=== PATIENT | female | born 1995 | race Caucasian/White ===

== ENCOUNTER 2017-01-13 22:58 | Emergency (ER) | payer SELFPAY ==
--- NOTE | 2017-01-13 23:40 | EDM.PDOC ---
ED HPI GENERAL MEDICAL PROBLEM - General Chief Complaint: Gastrointestinal Problem Stated Complaint: PT VOMITING Time Seen by Provider: 01/13/17 23:30 - History of Present Illness INITIAL COMMENTS - FREE TEXT/NARRATIVE: Patient left without being seen lower abdominal pain Pain Score (Numeric/FACES): 2 - Related Data Allergies Allergy/AdvReac Type Severity Reaction Status Date / Time coconut Allergy Hives Verified 02/16/17 09:42 iodine Allergy Hives Verified 02/16/17 09:42 loratadine [From Claritin] Allergy Rash Verified 02/16/17 09:42 Penicillins Allergy Rash Verified 02/16/17 09:42 sumatriptan Allergy Other Verified 02/16/17 09:42 Home Meds: Home Meds Iud 10/26/15 [History] Past Medical History HEENT History: Reports: None Cardiovascular History: Reports: None Respiratory History: Reports: Asthma Gastrointestinal History: Reports: None Genitourinary History: Reports: None 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 Musculoskeletal History: Reports: None Neurological History: Reports: Other (See Below) 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 Psychiatric History: Reports: None Endocrine/Metabolic History: Reports: None Hematologic History: Reports: None Immunologic History: Reports: None Oncologic (Cancer) History: Reports: None Dermatologic History: Reports: None - Infectious Disease History Infectious Disease History: Reports: Chicken Pox - Past Surgical History Head Surgeries/Procedures: Reports: None Female Surgical History: Reports: D&C Social & Family History - Family History Family Medical History: Noncontributory - Tobacco Use Smoking Status *Q: Current Every Day Smoker Years of Tobacco use: 6 Packs/Tins Daily: 0.2 Second Hand Smoke Exposure: Yes - Recreational Drug Use Recreational Drug Use: Yes Drug Use in Last 12 Months: Yes Recreational Drug Type: Reports: Marijuana/Hashish Recreational Drug Use Frequency: Socially ED ROS GENERAL - Review of Systems Review Of Systems: See Below (History of present illness) ED EXAM, GENERAL - Physical Exam Exam: See Below (History of present illness) Course - Vital Signs Last Recorded V/S: Last Vital Signs Temp 36.2 C 01/13/17 23:30 Pulse 102 H 01/13/17 23:30 Resp 16 01/13/17 23:30 BP 143/84 H 01/13/17 23:30 Pulse Ox 98 01/13/17 23:30 Departure - Departure Time of Disposition: 23:30 Disposition: Left Without Being Seen 07 Condition: Undetermined Clinical Impression: Patient left before evaluation by physician - Discharge Information Referrals: PCP,None [Primary Care Provider] - Forms: ED Department Discharge
[2017-01-14 00:06] VITALS: BP 143/84
== END 2017-01-13 23:52 | disposition left against medical advice (07) ==
LOC: MW.ED 22:58
DX: Z53.21 Procedure and treatment not carried out due to patient leaving prior to being seen by health care provider (principal)

== ENCOUNTER 2017-02-15 09:05 | Emergency (ER) | payer SELFPAY ==
[2017-02-15] MEDS ORDERED: Sodium Chloride 0.9% 10 ML Syringe FLUSH PRN (09:37)
[2017-02-15] MEDS ORDERED: Sodium Chloride 0.9% 2.5 ML Syringe FLUSH PRN (09:37)
[2017-02-15] MEDS ORDERED: Sodium Chloride 0.9% 1,000 ML IV ONE (09:38)
[2017-02-15] MEDS ORDERED: Ketorolac 30 MG/ML SDV IVPUSH ONE (09:38)
[2017-02-15] MEDS ORDERED: Morphine 2 MG/ML Syringe IVPUSH ONE (09:38)
--- NOTE | 2017-02-15 09:43 | EDM.PDOC ---
ED HPI GENERAL MEDICAL PROBLEM - General Chief Complaint: Skin Complaint Stated Complaint: LUMP IN CHEST AREA THATS PAINFUL Time Seen by Provider: 02/15/17 09:25 - History of Present Illness INITIAL COMMENTS - FREE TEXT/NARRATIVE: HISTORY AND PHYSICAL: History of present illness: The patient is a healthy 21-year-old female with a history of mild asthma and was an IUD in place and is not and presents with complaints of 5 days of a lump near the right armpit that now has extended to the right chest wall. The patient says she has had a fever over this same timeframe ranging from 99- 101.1. His been using [id number] medications for that fever. She has no sore throat cough runny nose shortness of breath abdominal complaints. She says that she noticed a small bump in the armpit on the right side 5 days ago and she did not manipulate it but it was very painful. She noticed that it was spreading towards her chest wall area and thought she should get seen because of the size of the redness and swelling. Patient has no breast complaints and no breast masses. Patient has no neurosensory changes or weakness in the right upper extremity. She says the area is very tender and she has put warm compresses on it which has made it worse Review of systems: As per history of present illness and below otherwise all systems reviewed and negative. Past medical history: As per history of present illness and as reviewed below otherwise noncontributory. Surgical history: As per history of present illness and as reviewed below otherwise noncontributory. Social history: No reported history of drug or alcohol abuse. Family history: As per history of present illness and as reviewed below otherwise noncontributory. Physical exam: Gen.: Well-developed overweight female who is nontoxic and vital signs of been reviewed by me. HEENT: Atraumatic, normocephalic, pupils reactive, negative for conjunctival pallor or scleral icterus, mucous membranes moist, throat clear, neck supple, nontender, trachea midline. No cervical adenopathy or supraclavicular adenopathy Lungs: Clear to auscultation, breath sounds equal bilaterally, chest wall with tenderness fluctuance and erythema noted originating from the anterior axillary line on the right and extending medially for a total measurement of 12-13 cm x 8 -9 cm. There is fluctuance or at the anterior axillary line area but it does extend into the chest wall. There is tenderness with palpation of this which is exquisite and the margins are well-defined. The patient is able to range of motion the right upper extremity but there is some discomfort with engagement of the musculature. There is no crepitus or bony deformities appreciated. There is no sensory muscle use or work of breathing. There is no axillary lymphadenopathy appreciated and no supraclavicular adenopathy appreciated. A right breast is soft without any tenderness masses or erythema Heart: S1S2, regular rhythm tachycardic rate on my evaluation, negative for clicks, rubs, or JVD. Abdomen: Soft, nondistended, nontender. NABS Skin: No evidence of any rashes or lesions seen with the exception of the chest wall area as described above. Turgor is normal Genitourinary: Deferred. Rectal: Deferred. Extremities: Atraumatic, negative for cords or calf pain. Neurovascular unremarkable. Neuro: Awake, alert, oriented. Cranial nerves II through XII unremarkable. Cerebellum unremarkable. Motor and sensory unremarkable throughout. Exam nonfocal. Diagnostics: Chest x-ray CBC CMP lactic acid blood cultures ultrasound of the soft tissue of the chest wall/axillary area Therapeutics: IV fluids Toradol morphine Vancomycin Area of erythema and swelling was marked with a surgical pen Case was discussed with Dr. Moscoso @1118am; she has reviewed labs and ultrasound with me and is aware of the case and request that I do a local I&D, without super aggressive manipulation, and place the patient on antibiotics and she will follow the patient and her clinic on Tuesday. I discussed the procedure with the patient and she is agreeable. I also told her that I will have her return tomorrow to the ER for reevaluation. I told her that she will need to contact the clinic and get that scheduled appointment for Tuesday. Procedure note: After procedure was explanted the patient the area was prepped and draped in sterile fashion and 1% lidocaine with epinephrine was infused in a localized fashion at the area of most fluctuance. Using 11 blade scalpel incision was made and Copious pus was immediately expressed appeared to be under pressure after the incision was made. The area was milked and or pus was extracted and the cavity was gently probed and an iodoform gauze was placed. The dressing was applied by nursing There were no complications and the patient tolerated the procedure well. Impression: Abscess and cellulitis at right axilla/chest wall Definitive disposition and diagnosis as appropriate pending reevaluation and review of above. Right breast Pain Score (Numeric/FACES): 8 - Related Data Allergies Allergy/AdvReac Type Severity Reaction Status Date / Time coconut Allergy Hives Verified 02/15/17 09:17 iodine Allergy Hives Verified 02/15/17 09:17 loratadine [From Claritin] Allergy Rash Verified 02/15/17 09:17 Penicillins Allergy Rash Verified 02/15/17 09:17 sumatriptan Allergy Other Verified 02/15/17 09:17 Home Meds: Home Meds Iud 10/26/15 [History] Past Medical History HEENT History: Reports: None Cardiovascular History: Reports: None Respiratory History: Reports: Asthma Gastrointestinal History: Reports: None Genitourinary History: Reports: None 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 Musculoskeletal History: Reports: None Neurological History: Reports: Other (See Below) 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 Psychiatric History: Reports: None Endocrine/Metabolic History: Reports: None Hematologic History: Reports: None Immunologic History: Reports: None Oncologic (Cancer) History: Reports: None Dermatologic History: Reports: None - Infectious Disease History Infectious Disease History: Reports: Chicken Pox - Past Surgical History Head Surgeries/Procedures: Reports: None Female Surgical History: Reports: D&C Social & Family History - Family History Family Medical History: Noncontributory - Tobacco Use Smoking Status *Q: Current Every Day Smoker Years of Tobacco use: 4 Packs/Tins Daily: 0.3 Second Hand Smoke Exposure: Yes - Caffeine Use Caffeine Use: Reports: Coffee - Recreational Drug Use Recreational Drug Use: No Drug Use in Last 12 Months: Yes Recreational Drug Type: Reports: Marijuana/Hashish Recreational Drug Use Frequency: Socially ED ROS GENERAL - Review of Systems Review Of Systems: ROS reveals no pertinent complaints other than HPI. ED EXAM, SKIN/RASH Exam: See Below (See dictation) Course - Vital Signs Last Recorded V/S: Last Vital Signs Temp 36.6 C 02/15/17 09:18 Pulse 92 02/15/17 10:41 Resp 16 02/15/17 10:41 BP 121/74 02/15/17 10:41 Pulse Ox 100 02/15/17 10:41 - Orders/Labs/Meds Orders: Active Orders 24 hr Category Date Time Status CULTURE BLOOD [BC] Stat Lab 02/15/17 09:45 Received CULTURE BLOOD [BC] Stat Lab 02/15/17 09:56 Received Sodium Chloride 0.9% [Saline Flush] Med 02/15/17 09:37 Active 10 ml FLUSH ASDIRECTED PRN Sodium Chloride 0.9% [Saline Flush] Med 02/15/17 09:37 Active 2.5 ml FLUSH ASDIRECTED PRN Vancomycin [Vancocin] 1 gm Med 02/15/17 11:22 Active Sodium Chloride 0.9% [Normal Saline] 250 ml IV ONETIME Blood Culture x2 Reflex Set [OM.PC] Stat Oth 02/15/17 09:38 Ordered Saline Lock Insert [OM.PC] Stat Oth 02/15/17 09:36 Ordered Medication Orders Vancomycin HCl 1 gm/ Sodium (Chloride) 250 mls @ 250 mls/hr IV ONETIME ONE Stop: 02/15/17 12:21 Last Admin: 02/15/17 11:58 Dose: 250 mls/hr Sodium Chloride (Saline Flush) 10 ml FLUSH ASDIRECTED PRN PRN Reason: Keep Vein Open Last Admin: 02/15/17 09:51 Dose: 10 ml Sodium Chloride (Saline Flush) 2.5 ml FLUSH ASDIRECTED PRN PRN Reason: Keep Vein Open Labs: Laboratory Tests 02/15/17 02/15/17 02/15/17 Range/Units 09:45 09:45 09:45 WBC 14.79 H (4.0-11.0) K/uL RBC 4.32 (4.30-5.90) M/uL Hgb 13.9 (12.0-16.0) g/dL Hct 42.4 (36.0-46.0) % MCV 98.1 H (80.0-98.0) fL MCH 32.2 H (27.0-32.0) pg MCHC 32.8 (31.0-37.0) g/dL RDW Std Deviation 46.2 (28.0-62.0) fl RDW Coeff of Jacqueline 13 (11.0-15.0) % Plt Count 312 (150-400) K/uL MPV 9.90 (7.40-12.00) fL Neut % (Auto) 77.2 (48.0-80.0) % Lymph % (Auto) 12.9 L (16.0-40.0) % [place] % (Auto) 8.9 (0.0-15.0) % Eos % (Auto) 0.7 (0.0-7.0) % Baso % (Auto) 0.3 (0.0-1.5) % Neut # (Auto) 11.4 H (1.4-5.7) K/uL Lymph # (Auto) 1.9 (0.6-2.4) K/uL [place] # (Auto) 1.3 H (0.0-0.8) K/uL Eos # (Auto) 0.1 (0.0-0.7) K/uL Baso # (Auto) 0.0 (0.0-0.1) K/uL Nucleated RBC % 0.0 /100WBC Nucleated RBCs # 0 K/uL Lactate 1.8 (0.20-2.00) mmol/L Sodium 139 (136-146) mmol/L Potassium 4.1 (3.5-5.1) mmol/L Chloride 105 (98-110) mmol/L Carbon Dioxide 23 (21-31) mmol/L BUN 11 (6.0-23.0) mg/dL Creatinine 0.8 (0.6-1.5) mg/dL Est Cr Clr Drug Dosing 106.36 mL/min Estimated GFR (MDRD) > 60.0 ml/min Glucose 132 H (60-110) mg/dL Calcium 9.6 (8.8-10.8) mg/dL Total Bilirubin 0.3 (0.1-1.5) mg/dL AST 15 (5-40) IU/L ALT 28 (8-54) IU/L Alkaline Phosphatase 81 (40-150) Total Protein 7.9 (6.0-8.0) g/dL Albumin 4.2 (3.5-5.0) g/dL Globulin 3.7 H (2.0-3.5) g/dL Albumin/Globulin Ratio 1.1 L (1.3-2.8) Meds: Medications Generic Name Dose Route Start Last Admin Trade Name Freq PRN Reason Stop Dose Admin Vancomycin HCl 1 gm/ Sodium 250 mls @ 250 mls/hr 09/05/17 11:22 02/15/17 11: 58 Chloride IV 02/15/17 12:21 250 mls/hr ONETIME ONE Administration Sodium Chloride 10 ml 02/15/17 09:37 02/15/17 09:51 Saline Flush FLUSH 10 ml ASDIRECTED PRN Administration Keep Vein Open Sodium Chloride 2.5 ml 02/15/17 09:37 Saline Flush FLUSH ASDIRECTED PRN Keep Vein Open Discontinued Medications Generic Name Dose Route Start Last Admin Trade Name Beckie PRN Reason Stop Dose Admin Sodium Chloride 1,000 mls @ 999 mls/hr 02/15/17 09:38 02/15/17 10:38 Normal Saline IV 02/15/17 10:38 999 mls/hr STAT ONE Administration Ketorolac Tromethamine 30 mg 02/15/17 09:38 02/15/17 09:51 Toradol IVPUSH 02/15/17 09:39 30 mg ONETIME ONE Administration Lidocaine/Epinephrine 20 ml 02/15/17 11:22 02/15/17 11:58 Xylocaine 1% With Epinephrine 1:100,000 INJECT 02/15/17 11:23 20 ml ONETIME ONE Administration Morphine Sulfate 2 mg 02/15/17 09:38 02/15/17 09:52 Morphine IVPUSH 02/15/17 09:39 2 mg ONETIME ONE Administration Departure - Departure Time of Disposition: 12:15 Disposition: Home, Self-Care 01 Condition: Good Clinical Impression: Abscess Cellulitis Qualifiers: Site of cellulitis: other site Qualified Code(s): L03.818 - Cellulitis of other sites - Discharge Information Referrals: PCP,None [Primary Care Provider] - Forms: ED Department Discharge Additional Instructions: The following information is given to patients seen in the emergency department who are being discharged to home. This information is to outline your options for follow-up care. We provide all patients seen in our emergency department with a follow-up referral. The need for follow-up, as well as the timing and circumstances, are variable depending upon the specifics of your emergency department visit. If you don't have a primary care physician on staff, we will provide you with a referral. We always advise you to contact your personal physician following an emergency department visit to inform them of the circumstance of the visit and for follow-up with them and/or the need for any referrals to a consulting specialist. The emergency department will also refer you to a specialist when appropriate. This referral assures that you have the opportunity for followup care with a specialist. All of these measure are taken in an effort to provide you with optimal care, which includes your followup. Under all circumstances we always encourage you to contact your private physician who remains a resource for coordinating your care. When calling for followup care, please make the office aware that this follow-up is from your recent emergency room visit. If for any reason you are refused follow-up, please contact the [facility] emergency department at and ask to speak to the emergency department charge nurse. [facility] [address] [place] [id number] Please make an appointment at the clinic with Dr. Moscoso for Tuesday, she has urinated and she expects you to make an appointment to be followed up. Please tail a polymer specialist that the physician approved this visit. Please return to ER tomorrow for pack removal and reevaluation. Please take all antibiotics as directed starting them today. Use pain meds as needed or [id number] Tylenol/ibuprofen. Please change the dressing if it becomes wet and expect drainage from the area. Rest and hydrate. - My Orders Last 24 Hours: My Active Orders 02/15/17 09:36 Saline Lock Insert [OM.PC] Stat 02/15/17 09:37 Sodium Chloride 0.9% [Saline Flush] 10 ml FLUSH ASDIRECTED PRN Sodium Chloride 0.9% [Saline Flush] 2.5 ml FLUSH ASDIRECTED PRN 02/15/17 09:38 Blood Culture x2 Reflex Set [OM.PC] Stat 02/15/17 09:45 CULTURE BLOOD [BC] Stat 02/15/17 09:56 CULTURE BLOOD [BC] Stat 02/15/17 11:22 Vancomycin [Vancocin] 1 gm Sodium Chloride 0.9% [Normal Saline] 250 ml IV ONETIME - Assessment/Plan Last 24 Hours: My Active Orders 02/15/17 09:36 Saline Lock Insert [OM.PC] Stat 02/15/17 09:37 Sodium Chloride 0.9% [Saline Flush] 10 ml FLUSH ASDIRECTED PRN Sodium Chloride 0.9% [Saline Flush] 2.5 ml FLUSH ASDIRECTED PRN 02/15/17 09:38 Blood Culture x2 Reflex Set [OM.PC] Stat 02/15/17 09:45 CULTURE BLOOD [BC] Stat 02/15/17 09:56 CULTURE BLOOD [BC] Stat 02/15/17 11:22 Vancomycin [Vancocin] 1 gm Sodium Chloride 0.9% [Normal Saline] 250 ml IV ONETIME
--- NOTE | 2017-02-15 10:23 | US ---
EXAMINATION: Right axillary ultrasound HISTORY: Evaluate abscess COMPARISON: None TECHNIQUE: Grayscale and color Doppler images obtained of the region of concern. FINDINGS: There is a heterogeneous collection noted within the right axillary/upper chest wall region measuring at least 3 x 3.2 x 1.8 cm. There is prominent overlying skin thickening and edema within t he soft tissues. No significant internal color Doppler flow with mildly increased surrounding color D oppler flow. IMPRESSION: 1. Prominent subcutaneous fluid collection noted within the region of concern most likely a subcutane ous abscess with adjacent cellulitis.
[2017-02-15 10:26] LABS: CHLORIDE,CL 105 mmol/L (98-110); SODIUM,NA 139 mmol/L (136-146)
--- NOTE | 2017-02-15 10:55 | CR ---
EXAMINATION: PA chest radiograph. HISTORY: Shortness of breath. FINDINGS: The trachea is midline. The cardiomediastinal silhouette is within normal limits. No pulmonary infilt rates, effusions or pneumothorax. Osseous structures appear unremarkable. IMPRESSION: No acute cardiopulmonary process.
[2017-02-15] MEDS ORDERED: Lidocaine 1% with EPINEPHrine 1:100,000 20 ML MDV INJECT ONE (11:22)
[2017-02-15] MEDS ORDERED: diphenhydrAMINE 50 MG/ML SDV IVPUSH ONE (13:02)
[2017-02-15 13:54] VITALS: BP 143/73
== END 2017-02-15 13:46 | disposition home or self-care (01) ==
LOC: MW.ED 09:05
DX: L02.411 Cutaneous abscess of right axilla (principal); L03.111 Cellulitis of right axilla; J45.909 Unspecified asthma, uncomplicated; F17.210 Nicotine dependence, cigarettes, uncomplicated; Z88.0 Allergy status to penicillin; Z88.8 Allergy status to other drugs, medicaments and biological substances; Z91.018 Allergy to other foods
CPT/HCPCS: 10061; 36415; 71010; 76604; 80053; 83605; 85025; 87040; 96361; 96365; 96375; 99284; J1200; J1885; J2270; J3370; J7040; J7050; 99283

== ENCOUNTER 2017-02-16 09:13 | Emergency (ER) | payer SELFPAY ==
[2017-02-16] MEDS ORDERED: Lidocaine 1% 20 ML MDV INJECT ONE (09:14)
--- NOTE | 2017-02-16 09:18 | EDM.PDOC ---
ED HPI GENERAL MEDICAL PROBLEM - General Chief Complaint: Wound Recheck Stated Complaint: F/U LUMP ON CHEST Time Seen by Provider: 02/16/17 09:25 - History of Present Illness INITIAL COMMENTS - FREE TEXT/NARRATIVE: HISTORY AND PHYSICAL: History of present illness: The patient is a 21-year-old female who I saw yesterday for an abscess and cellulitis that originated from her right anterior axillary line and then was spreading to her anterior chest wall. She had a workup yesterday consisting of labs and ultrasound and I performed an incision and drainage on the wound yesterday. Patient was given antibiotics here and placed on antibiotics for home. She returns today for a wound check and repacking as needed. Patient says overall she feels like it is improving but it is still sensitive in the area. She has no new symptoms of fever chest pain shortness of breath or other rashes or lesions. Review of systems: As per history of present illness and below otherwise all systems reviewed and negative. Past medical history: As per history of present illness and as reviewed below otherwise noncontributory. Surgical history: As per history of present illness and as reviewed below otherwise noncontributory. Social history: No reported history of drug or alcohol abuse. Family history: As per history of present illness and as reviewed below otherwise noncontributory. Physical exam: Gen.: Well-developed well-nourished female who is nontoxic and ambulatory in the ED. Vital signs have been reviewed by me. Chest wall area: The area of erythema and induration that was marked yesterday is significantly improved. There is still some tenderness in the region but there is no crepitus and there is still induration but no fluctuance. The pack is in place. Diagnostics: None Therapeutics: Lidocaine without epinephrine for packing change Procedure note: After the area was cleansed with normal saline 1% lidocaine without epinephrine was infused in the incision site and the pack was removed without complication. More pus was expressed from the wound but only in a moderate amount. The wound was repacked with iodoform gauze 1/4 inch and the patient tolerated the procedure well and there were no complications. A dressing was reapplied. I discussed with the patient that she could remove the pack at home tomorrow as she has an appointment with Dr. Moscoso on Tuesday. Patient states she does not feel comfortable doing that so I have offered her the option of coming back tomorrow for pack change if she feels that there is significant drainage and the pack needs to be changed out or she could leave this pack in until Tuesday morning. She says that she will see how things go return if necessary. She is currently taking her antibiotics and is compliant. Impression: Wound recheck for chest wall abscess abscess repacking, Definitive disposition and diagnosis as appropriate pending reevaluation and review of above. right chest area Pain Score (Numeric/FACES): 6 - Related Data Allergies Allergy/AdvReac Type Severity Reaction Status Date / Time coconut Allergy Hives Verified 02/15/17 09:17 iodine Allergy Hives Verified 02/15/17 09:17 loratadine [From Claritin] Allergy Rash Verified 02/15/17 09:17 Penicillins Allergy Rash Verified 02/15/17 09:17 sumatriptan Allergy Other Verified 02/15/17 09:17 Home Meds: Home Meds Iud 10/26/15 [History] Past Medical History HEENT History: Reports: None Cardiovascular History: Reports: None Respiratory History: Reports: Asthma Gastrointestinal History: Reports: None Genitourinary History: Reports: None 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 Musculoskeletal History: Reports: None Neurological History: Reports: Other (See Below) 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 Psychiatric History: Reports: None Endocrine/Metabolic History: Reports: None Hematologic History: Reports: None Immunologic History: Reports: None Oncologic (Cancer) History: Reports: None Dermatologic History: Reports: None - Infectious Disease History Infectious Disease History: Reports: Chicken Pox - Past Surgical History Head Surgeries/Procedures: Reports: None Female Surgical History: Reports: D&C Social & Family History - Family History Family Medical History: Noncontributory - Tobacco Use Smoking Status *Q: Current Every Day Smoker Years of Tobacco use: 4 Packs/Tins Daily: 0.3 Second Hand Smoke Exposure: Yes - Caffeine Use Caffeine Use: Reports: Coffee - Recreational Drug Use Recreational Drug Use: No Drug Use in Last 12 Months: Yes Recreational Drug Type: Reports: Marijuana/Hashish Recreational Drug Use Frequency: Socially ED ROS GENERAL - Review of Systems Review Of Systems: ROS reveals no pertinent complaints other than HPI. ED EXAM, GENERAL - Physical Exam Exam: See Below (See dictation) Course - Orders/Labs/Meds Meds: Medications Discontinued Medications Generic Name Dose Route Start Last Admin Trade Name Beckie PRN Reason Stop Dose Admin Lidocaine HCl 20 ml 02/16/17 09:14 Xylocaine 1% INJECT 02/16/17 09:15 ONETIME ONE Departure - Departure Time of Disposition: 09:39 Disposition: Home, Self-Care 01 Condition: Good Clinical Impression: Encounter for wound re-check - Discharge Information Forms: ED Department Discharge Additional Instructions: The following information is given to patients seen in the emergency department who are being discharged to home. This information is to outline your options for follow-up care. We provide all patients seen in our emergency department with a follow-up referral. The need for follow-up, as well as the timing and circumstances, are variable depending upon the specifics of your emergency department visit. If you don't have a primary care physician on staff, we will provide you with a referral. We always advise you to contact your personal physician following an emergency department visit to inform them of the circumstance of the visit and for follow-up with them and/or the need for any referrals to a consulting specialist. The emergency department will also refer you to a specialist when appropriate. This referral assures that you have the opportunity for followup care with a specialist. All of these measure are taken in an effort to provide you with optimal care, which includes your followup. Under all circumstances we always encourage you to contact your private physician who remains a resource for coordinating your care. When calling for followup care, please make the office aware that this follow-up is from your recent emergency room visit. If for any reason you are refused follow-up, please contact the [facility] emergency department at and ask to speak to the emergency department charge nurse. [facility] [address] [place] [id number] Please continue to do dressing changes if there is significant drainage from the wound. Please continue your antibiotics until they're finished. Keep your appointment on Tuesday with Dr. Moscoso; he may return here tomorrow to the emergency department for pack change tomorrow if you choose or you can leave the pack in until seen by the surgeon on Tuesday. Please hi how things are going to make that decision but return to ER as needed and as we discussed and as you choose.
[2017-02-16 09:48] VITALS: BP 120/75
== END 2017-02-16 09:51 | disposition home or self-care (01) ==
LOC: MW.ED 09:13
DX: Z48.01 Encounter for change or removal of surgical wound dressing (principal); L02.213 Cutaneous abscess of chest wall; F17.210 Nicotine dependence, cigarettes, uncomplicated; J45.909 Unspecified asthma, uncomplicated; Z88.0 Allergy status to penicillin; Z88.8 Allergy status to other drugs, medicaments and biological substances; Z91.018 Allergy to other foods; Z98.890 Other specified postprocedural states
CPT/HCPCS: 99282

== ENCOUNTER 2018-12-08 01:35 | Emergency (ER) | payer SELFPAY ==
[2018-12-08 01:47] VITALS: BP 128/86
--- NOTE | 2018-12-08 01:58 | EDM.PDOC ---
ED HPI GENERAL MEDICAL PROBLEM - General Chief Complaint: Back Pain or Injury Stated Complaint: BACK PAIN, SPINAL CONDITION, CHEST PAIN Time Seen by Provider: 12/08/18 01:53 - History of Present Illness INITIAL COMMENTS - FREE TEXT/NARRATIVE: HISTORY AND PHYSICAL: History of present illness: Patient 23-year-old white female with history chronic neck and back pain presents a concern of back pain that occurred when she bent over to peanut picker a friend's child. She has been seeing a chiropractor regularly for this. There's been no incontinence or retention bowel or bladder Review of systems: As per history of present illness and below otherwise all systems reviewed and negative. Past medical history: As per history of present illness and as reviewed below otherwise noncontributory. Surgical history: As per history of present illness and as reviewed below otherwise noncontributory. Social history: No reported history of drug or alcohol abuse. Family history: As per history of present illness and as reviewed below otherwise noncontributory. Physical exam: HEENT: Atraumatic, normocephalic, pupils reactive, negative for conjunctival pallor or scleral icterus, mucous membranes moist, throat clear, neck supple, nontender, trachea midline. Lungs: Clear to auscultation, breath sounds equal bilaterally, chest nontender. Heart: S1S2, regular, negative for clicks, rubs, or JVD. Abdomen: Soft, nondistended, nontender. Negative for masses or hepatosplenomegaly. Negative for costovertebral tenderness. Pelvis: Stable nontender. Genitourinary: Deferred. Rectal: Deferred. Extremities: Atraumatic, negative for cords or calf pain. Neurovascular unremarkable. Neuro: Awake, alert, oriented. Cranial nerves II through XII unremarkable. Cerebellum unremarkable. Motor and sensory unremarkable throughout. Exam nonfocal. Back: Patient has tenderness in paravertebral region at the level lumbar spinal vertebral body or point tenderness patient able stand on her toes back on her heels motor and sensory are normal Diagnostics: None Therapeutics: None Impression: #1 chronic back pain with acute exacerbation Definitive disposition and diagnosis as appropriate pending reevaluation and review of above. back Pain Score (Numeric/FACES): 7 - Related Data Allergies Allergy/AdvReac Type Severity Reaction Status Date / Time coconut Allergy Hives Verified 12/08/18 01:47 iodine Allergy Hives Verified 12/08/18 01:47 loratadine [From Claritin] Allergy Rash Verified 12/08/18 01:47 Penicillins Allergy Rash Verified 12/08/18 01:47 sumatriptan Allergy Other Verified 12/08/18 01:47 Home Meds: Home Meds . 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; spinal tap for headaches Psychiatric History: Reports: Anxiety, Depression Endocrine/Metabolic History: Reports: None Hematologic History: Reports: None Immunologic History: Reports: None Oncologic (Cancer) History: Reports: None Dermatologic History: Reports: None - Infectious Disease History Infectious Disease History: Reports: Chicken Pox - Past Surgical History Head Surgeries/Procedures: Reports: None Female Surgical History: Reports: D&C Neurological Surgical History: Reports: None Social & Family History - Family History Family Medical History: Noncontributory - Tobacco Use Smoking Status *Q: Current Every Day Smoker Years of Tobacco use: 7 Packs/Tins Daily: 0.5 - Caffeine Use Caffeine Use: Reports: Coffee - Recreational Drug Use Recreational Drug Use: No ED ROS GENERAL - Review of Systems Review Of Systems: ROS reveals no pertinent complaints other than HPI. ED EXAM, GENERAL - Physical Exam Exam: See Below (Dictation) Course - Vital Signs Last Recorded V/S: Last Vital Signs Temp 36.3 C 12/08/18 01:42 Pulse 113 H 12/08/18 01:42 Resp 18 12/08/18 01:42 BP 128/86 12/08/18 01:42 Pulse Ox 97 12/08/18 01:42 Departure - Departure Time of Disposition: 01:57 Disposition: Home, Self-Care 01 Condition: Good Clinical Impression: Chronic back pain - Discharge Information Referrals: PCP,None [Primary Care Provider] - Additional Instructions: The following information is given to patients seen in the emergency department who are being discharged to home. This information is to outline your options for follow-up care. We provide all patients seen in our emergency department with a follow-up referral. The need for follow-up, as well as the timing and circumstances, are variable depending upon the specifics of your emergency department visit. If you don't have a primary care physician on staff, we will provide you with a referral. We always advise you to contact your personal physician following an emergency department visit to inform them of the circumstance of the visit and for follow-up with them and/or the need for any referrals to a consulting specialist. The emergency department will also refer you to a specialist when appropriate. This referral assures that you have the opportunity for followup care with a specialist. All of these measure are taken in an effort to provide you with optimal care, which includes your followup. Under all circumstances we always encourage you to contact your private physician who remains a resource for coordinating your care. When calling for followup care, please make the office aware that this follow-up is from your recent emergency room visit. If for any reason you are refused follow-up, please contact the [facility] emergency department at and asked to speak to the emergency department charge nurse. [facility] [address] [place] [id number] Ultram Medrol as prescribed follow-up primary care above return as needed as discussed
== END 2018-12-08 02:20 | disposition home or self-care (01) ==
LOC: MW.ED 01:35
DX: M54.5 Low back pain (principal); G89.29 Other chronic pain; F17.210 Nicotine dependence, cigarettes, uncomplicated; Z91.018 Allergy to other foods; Z91.09 Other allergy status, other than to drugs and biological substances; Z88.0 Allergy status to penicillin; Z88.8 Allergy status to other drugs, medicaments and biological substances
CPT/HCPCS: 99283

== ENCOUNTER 2020-05-13 00:46 | Emergency (ER) | payer SELFPAY ==
[2020-05-13 01:21] VITALS: BP 155/94; PULSE 129
--- NOTE | 2020-05-13 01:52 | EDM.PDOC ---
ED HPI GENERAL MEDICAL PROBLEM - General Chief Complaint: Behavioral/Psych Stated Complaint: SUICIDAL Time Seen by Provider: 05/13/20 00:56 - History of Present Illness INITIAL COMMENTS - FREE TEXT/NARRATIVE: 25-year-old female presenting with suicidal ideation. The patient reports that she has struggled with depression and suicidal ideation for years. She did have a prior attempt by overdose and she thought about cutting her wrists in the past but never did. She has had overwhelming suicidal ideation that is been gradually worsening over the last several days. She states that the only reason she has not shot herself in the head is because she does not want to ruin her sister's 18th birthday which just passed. The patient confided in her aunt who encouraged her to come to the ER tonight. She does have active suicidal ideation she denies a history of psychosis she was previously on antidepressants and antipsychotics but has not been on any medicine for some time and is seeing a counselor as. She denies ever having presented to an ER or hospital for these types of issues in the past. She denies physical complaint. - Related Data Allergies Allergy/AdvReac Type Severity Reaction Status Date / Time coconut Allergy Hives Verified 05/13/20 01:21 iodine Allergy Hives Verified 05/13/20 01:21 loratadine [From Claritin] Allergy Rash Verified 05/13/20 01:21 Penicillins Allergy Rash Verified 05/13/20 01:21 sumatriptan Allergy Other Verified 05/13/20 01:21 Home Meds: Home Meds . 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; spinal tap for headaches Psychiatric History: Reports: Anxiety, Depression Endocrine/Metabolic History: Reports: None Hematologic History: Reports: None Immunologic History: Reports: None Oncologic (Cancer) History: Reports: None Dermatologic History: Reports: None - Infectious Disease History Infectious Disease History: Reports: Chicken Pox - Past Surgical History Head Surgeries/Procedures: Reports: None Female Surgical History: Reports: D&C Neurological Surgical History: Reports: None Social & Family History - Family History Family Medical History: No Pertinent Family History - Tobacco Use Tobacco Use Status *Q: Current Every Day Tobacco User Years of Tobacco use: 10 Packs/Tins Daily: 0.5 - Caffeine Use Caffeine Use: Reports: Coffee, Energy Drinks - Recreational Drug Use Recreational Drug Use: No ED ROS GENERAL - Review of Systems Review Of Systems: See Below Free Text/Narrative/Comment: General: No fever. Skin: No rash. Eyes: No vision problems. ENT: No sore throat. Neck: No neck stiffness. Respiratory: No shortness of breath. Cardiac: No chest pain. Gastrointestinal: No nausea, vomiting or abdominal pain. Urinary: No dysuria. Musculoskeletal: No myalgias/arthralgias. Neurologic: No headache. ED EXAM, GENERAL - Physical Exam Exam: See Below Free Text/Narrative:: General Appearance: No acute distress, appears comfortable Skin: No rash HEENT: Normocephalic/atraumatic, sclera anicteric, mucous membranes moist Neck: Normal range of motion Chest and Lungs: Bilateral breath sounds, clear to auscultation Cardiovascular: Regular rate and rhythm, no murmur Back: Normal Musculoskeletal: No edema or tenderness Neurologic: Awake, alert, no obvious deficits, moving all extremities Psychiatric: Depressed mood, tearful, appropriate affect, active SI, no HI, no signs of internal stimuli #1 Interpretation EKG Date: 05/13/20 Time: 02:00 EKG Interpretation Comments: Normal sinus rhythm rate of 99 slight rightward axis but intervals normal with QTC 425 no acute ischemia otherwise normal EKG Course - Vital Signs Last Recorded V/S: Last Vital Signs Temp 98.8 F 05/13/20 01:18 Pulse 129 H 05/13/20 01:18 Resp 22 H 05/13/20 01:18 BP 155/94 H 05/13/20 01:18 Pulse Ox 96 05/13/20 01:18 - Orders/Labs/Meds Orders: Active Orders 24 hr Category Date Time Status EKG Documentation Completion [RC] STAT Care 05/13/20 01:34 Active CORONAVIRUS COVID-19 PCR PHL Stat Lab 05/13/20 02:08 Received Labs: Laboratory Tests 1205/13/20 05/13/20 Range/Units 01:47 01:47 01:49 WBC 9.07 (4.0-11.0) K/uL RBC 4.11 L (4.30-5.90) M/uL Hgb 13.4 (12.0-16.0) g/dL Hct 40.3 (36.0-46.0) % MCV 98.1 H (80.0-98.0) fL MCH 32.6 H (27.0-32.0) pg MCHC 33.3 (31.0-37.0) g/dL RDW Std Deviation 43.2 (28.0-62.0) fl RDW Coeff of Jacqueline 12 (11.0-15.0) % Plt Count 280 (150-400) K/uL MPV 10.00 (7.40-12.00) fL Neut % (Auto) 60.3 (48.0-80.0) % Lymph % (Auto) 30.9 (16.0-40.0) % [place] % (Auto) 7.6 (0.0-15.0) % Eos % (Auto) 0.6 (0.0-7.0) % Baso % (Auto) 0.6 (0.0-1.5) % Neut # (Auto) 5.5 (1.4-5.7) K/uL Lymph # (Auto) 2.8 H (0.6-2.4) K/uL [place] # (Auto) 0.7 (0.0-0.8) K/uL Eos # (Auto) 0.1 (0.0-0.7) K/uL Baso # (Auto) 0.1 (0.0-0.1) K/uL Sodium 144 (136-145) mmol/L Potassium 3.7 (3.5-5.1) mmol/L Chloride 105 (98-107) mmol/L Carbon Dioxide 25.0 (21.0-32.0) mmol/L BUN 8 (7.0-18.0) mg/dL Creatinine 0.9 (0.6-1.0) mg/dL Est Cr Clr Drug Dosing 91.31 mL/min Estimated GFR (MDRD) > 60.0 ml/min Glucose 114 H (74-106) mg/dL Calcium 9.1 (8.5-10.1) mg/dL Total Bilirubin 0.1 L (0.2-1.0) mg/dL AST 38 H (15-37) IU/L ALT 88 H (14-63) IU/L Alkaline Phosphatase 64 (46-116) U/L Total Protein 7.8 (6.4-8.2) g/dL Albumin 4.2 (3.4-5.0) g/dL Globulin 3.6 (2.6-4.0) g/dL Albumin/Globulin Ratio 1.2 (0.9-1.6) Urine HCG, Qual (NEGATIVE) Salicylates 1.6 (0-20) mg/dL Urine Opiates Screen NEGATIVE (NEGATIVE) Ur Oxycodone Screen NEGATIVE (NEGATIVE) Urine Methadone Screen NEGATIVE (NEGATIVE) Acetaminophen <2.0 ug/mL Ur Barbiturates Screen NEGATIVE (NEGATIVE) Ur Phencyclidine Scrn NEGATIVE (NEGATIVE) Ur Amphetamine Screen NEGATIVE (NEGATIVE) U Methamphetamines Scrn NEGATIVE (NEGATIVE) U Benzodiazepines Scrn NEGATIVE (NEGATIVE) U Cocaine Metab Screen NEGATIVE (NEGATIVE) U Marijuana (THC) Screen NEGATIVE (NEGATIVE) Ethyl Alcohol 197 mg/dL SARS CoV-2 RNA Rapid MIKEY (NEGATIVE) 05/13/20 05/13/20 Range/Units 01:49 01:50 WBC (4.0-11.0) K/uL RBC (4.30-5.90) M/uL Hgb (12.0-16.0) g/dL Hct (36.0-46.0) % MCV (80.0-98.0) fL MCH (27.0-32.0) pg MCHC (31.0-37.0) g/dL RDW Std Deviation (28.0-62.0) fl RDW Coeff of Jacqueline (11.0-15.0) % Plt Count (150-400) K/uL MPV (7.40-12.00) fL Neut % (Auto) (48.0-80.0) % Lymph % (Auto) (16.0-40.0) % [place] % (Auto) (0.0-15.0) % Eos % (Auto) (0.0-7.0) % Baso % (Auto) (0.0-1.5) % Neut # (Auto) (1.4-5.7) K/uL Lymph # (Auto) (0.6-2.4) K/uL [place] # (Auto) (0.0-0.8) K/uL Eos # (Auto) (0.0-0.7) K/uL Baso # (Auto) (0.0-0.1) K/uL Sodium (136-145) mmol/L Potassium (3.5-5.1) mmol/L Chloride (98-107) mmol/L Carbon Dioxide (21.0-32.0) mmol/L BUN (7.0-18.0) mg/dL Creatinine (0.6-1.0) mg/dL Est Cr Clr Drug Dosing mL/min Estimated GFR (MDRD) ml/min Glucose (74-106) mg/dL Calcium (8.5-10.1) mg/dL Total Bilirubin (0.2-1.0) mg/dL AST (15-37) IU/L ALT (14-63) IU/L Alkaline Phosphatase (46-116) U/L Total Protein (6.4-8.2) g/dL Albumin (3.4-5.0) g/dL Globulin (2.6-4.0) g/dL Albumin/Globulin Ratio (0.9-1.6) Urine HCG, Qual NEGATIVE (NEGATIVE) Salicylates (0-20) mg/dL Urine Opiates Screen (NEGATIVE) Ur Oxycodone Screen (NEGATIVE) Urine Methadone Screen (NEGATIVE) Acetaminophen ug/mL Ur Barbiturates Screen (NEGATIVE) Ur Phencyclidine Scrn (NEGATIVE) Ur Amphetamine Screen (NEGATIVE) U Methamphetamines Scrn (NEGATIVE) U Benzodiazepines Scrn (NEGATIVE) U Cocaine Metab Screen (NEGATIVE) U Marijuana (THC) Screen (NEGATIVE) Ethyl Alcohol mg/dL SARS CoV-2 RNA Rapid MIKEY NEGATIVE (NEGATIVE) Departure - Departure Time of Disposition: 02:53 Disposition: DC/Tfer to Acute Hospital 02 Condition: Good Clinical Impression: Suicidal ideation - Discharge Information *PRESCRIPTION DRUG MONITORING PROGRAM REVIEWED*: Not Applicable *COPY OF PRESCRIPTION DRUG MONITORING REPORT IN PATIENT DIA: Not Applicable Referrals: PCP,None [Primary Care Provider] - Forms: ED Department Discharge Sepsis Event Note (ED) - Evaluation Sepsis Screening Result: No Definite Risk - Focused Exam Vital Signs: Vital Signs Temp Pulse Resp BP Pulse Ox 05/13/20 01:18 98.8 F 129 H 22 H 155/94 H 96 - My Orders Last 24 Hours: My Active Orders 05/13/20 01:34 EKG Documentation Completion [RC] STAT 05/13/20 02:08 CORONAVIRUS COVID-19 PCR PHL Stat - Assessment/Plan Last 24 Hours: My Active Orders 05/13/20 01:34 EKG Documentation Completion [RC] STAT 05/13/20 02:08 CORONAVIRUS COVID-19 PCR PHL Stat Assessment:: 25-year-old female presenting with suicidal ideation with a plan. The patient states that she does have access to firearms. I do think the patient requires immediate inpatient psychiatric hospitalization. Relevant screening labs are pending but I do not have a clinical concern for acute medical process. Patient is agreeable to psychiatric admission at this time. 0245: Labs are good, minimal LFT abnormality likely 2/2 etOH and is not of clinical concern. COVID is negative. Pt discussed with Dr. Montero and accepted for transfer for psychiatric care
[2020-05-13 02:16] LABS: ACETAMINOPHEN <2.0 ug/mL; BLOOD UREA NITROGEN,BUN 8 mg/dL (7.0-18.0); CHLORIDE,CL 105 mmol/L (98-107); GLUCOSE RANDOM 114 mg/dL (74-106); POTASSIUM,K 3.7 mmol/L (3.5-5.1); SODIUM,NA 144 mmol/L (136-145)
== END 2020-05-13 03:47 ==
LOC: MW.ED 00:46
DX: R45.851 Suicidal ideations (principal); Z20.828 Contact with and (suspected) exposure to other viral communicable diseases; J45.909 Unspecified asthma, uncomplicated; F17.210 Nicotine dependence, cigarettes, uncomplicated; Z88.0 Allergy status to penicillin; Z91.018 Allergy to other foods; Z88.8 Allergy status to other drugs, medicaments and biological substances
CPT/HCPCS: 36415; 80053; 80305-QW; 80307; 81025; 85025; 93005; 93010; 99283; 99285-25; U0002

== ENCOUNTER 2020-06-17 20:53 | Emergency (ER) | payer SELFPAY ==
--- NOTE | 2020-06-17 22:00 | EDM.PDOCBH ---
<Mare Ramos R - Last Filed: 06/17/20 21:56> ED HPI GENERAL MEDICAL PROBLEM - General Chief Complaint: Behavioral/Psych Stated Complaint: MENTAL HEALTH Time Seen by Provider: 06/17/20 21:50 Source of Information: Reports: Patient, Family (friend) - History of Present Illness INITIAL COMMENTS - FREE TEXT/NARRATIVE: Presents to the emergency room complaining of "not feeling happy, depressed". The patient states that in April she had a major depressive episode. She was seen here in this emergency room and transferred to psychiatric care in [place]. There she was placed on propranolol, trazodone, Prozac. She was seen by a counselor and psychiatrist. She was diagnosed with major depressive disorder and borderline personality disorder. She states that until now she did "amazing on the Prozac". However in the last few days she has had self-harm thoughts, has been drinking quite a bit of alcohol, and am "not happy". She denies any medical problems except asthma. She comes with a concerned friend who gave her a ride here today. - Related Data Allergies Allergy/AdvReac Type Severity Reaction Status Date / Time coconut Allergy Hives Verified 06/17/20 21:57 iodine Allergy Hives Verified 06/17/20 21:57 loratadine [From Claritin] Allergy Rash Verified 06/17/20 21:57 Penicillins Allergy Rash Verified 06/17/20 21:57 sumatriptan Allergy Other Verified 06/17/20 21:57 Home Meds: Home Meds FLUoxetine HCl [Prozac] 20 mg PO DAILY 06/17/20 [History] Propranolol [Inderal] 20 mg PO DAILY 06/17/20 [History] traZODone HCl [Trazodone HCl] 50 mg PO DAILY 06/17/20 [History] Past Medical History - Past Health History Medical/Surgical History: Denies Medical/Surgical History HEENT History: Reports: None Cardiovascular History: Reports: None Respiratory History: Reports: Asthma Gastrointestinal History: Reports: None Genitourinary History: Reports: None 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 (See Below) Other SHOOK MACHINE OPERATOR History: D&C Musculoskeletal History: Reports: None Neurological History: Reports: Migraines, Other (See Below) 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; spinal tap for headaches Psychiatric History: Reports: Anxiety, Depression Endocrine/Metabolic History: Reports: None Hematologic History: Reports: None Immunologic History: Reports: None Oncologic (Cancer) History: Reports: None Dermatologic History: Reports: None - Infectious Disease History Infectious Disease History: Reports: Chicken Pox - Past Surgical History Head Surgeries/Procedures: Reports: None Female Surgical History: Reports: D&C Neurological Surgical History: Reports: None Social & Family History - Family History Family Medical History: No Pertinent Family History - Caffeine Use Caffeine Use: Reports: Coffee, Energy Drinks ED ROS GENERAL - Review of Systems Review Of Systems: Comprehensive ROS is negative, except as noted in HPI. ED EXAM, BEHAVIORAL HEALTH - Physical Exam Exam: See Below Exam Limited By: No Limitations General Appearance: Alert, No Apparent Distress Ears: Normal External Exam Nose: Normal Inspection Throat/Mouth: Normal Inspection Head: Atraumatic, Normocephalic Neck: Normal Inspection Respiratory/Chest: No Respiratory Distress, Lungs Clear, Normal Breath Sounds Cardiovascular: Regular Rate, Rhythm Back Exam: Normal Inspection Extremities: Normal Inspection Neurological: Alert Psychiatric: Alert, Normal Cognition, Other (giggly) Departure - Departure Disposition: DC/Tfer to Psych Hosp/Unit 65 Clinical Impression: Suicidal ideation MDD (major depressive disorder) Qualifiers: Major depression recurrence: recurrent Active/Remission status: currently active Major depression episode severity: severe Psychotic features: without psychotic features Qualified Code(s): F33.2 - Major depressive disorder, recurrent severe without psychotic features - Discharge Information Referrals: PCP,None [Primary Care Provider] - Forms: ED Department Discharge <Daniel Barker - Last Filed: 06/17/20 23:35> ED HPI GENERAL MEDICAL PROBLEM - History of Present Illness INITIAL COMMENTS - FREE TEXT/NARRATIVE: HISTORY AND PHYSICAL: History of present illness: This is a 25-year-old female who had a recent admission to [facility] for depression and SI who presents ER today with her friend secondary to having "bad thoughts. "When asked what those bad thoughts are, the patient reported that she was having thoughts about hurting herself and that she would rather not be alive at this time. Patient has no particular plan and has not tried or attempted to harm herself. Patient denies any recent fevers, shakes, chills, nausea, vomiting, diarrhea, dysuria, frequency, urgency, chest pain, shortness of breath. Patient reports that she was drinking alcohol tonight. Patient denies any drugs. Patient reports that she smokes approximately 2 packs of cigarettes per week. Patient denies any homicidal ideation. Patient denies any auditory or visual hallucinations. Review of systems: As per history of present illness and below otherwise all systems reviewed and negative. Past medical history: As per history of present illness and as reviewed below otherwise noncontributory. Surgical history: As per history of present illness and as reviewed below otherwise noncontributory. Social history: No reported history of drug or alcohol abuse. Family history: As per history of present illness and as reviewed below otherwise noncontributory. Physical exam: Constitutional: Patient is oriented to person, place, and time. Appears well- developed and well-nourished. No distress. HEENT: Moist mucous membranes Head: Normocephalic and atraumatic Eyes: Right eye exhibits no discharge. Left eye exhibits no discharge. No scleral icterus Neck: Normal range of motion. No tracheal deviation present. Cardiovascular: Normal rate and regular rhythm. Pulmonary: Effort normal, no respiratory distress. Abdominal: No distention Musculoskeletal: Normal range of motion Neurologic: Alert and oriented to person, place and time. Skin: [place], warm and dry. Psychiatric: SI positive. Patient insisting on walking outside in order to smoke a cigarette. We discussed with the patient that there is concerns regarding her SI and that she needs to stay in a monitored area within the ED. Nursing note and vital signs have been reviewed This patient was seen and evaluated during the 2019 SARS-CoV-2 novel coronavirus pandemic period. Community viral transmission is ongoing at time of this encounter and the emergency department is operating under pandemic response procedures. Diagnostics: Labs all within normal limits. EKG: As interpreted by ER physician: Mj: Nonspecific ST-T wave abnormalities Normal axis No evidence of ST elevation ND Normal sinus rhythm heart rate of 78 Therapeutics: Assessment and plan: This is a 25-year-old female who has a history significant for SI who presents ER today with recurrence of her SI. Patient is clinically intoxicated with an alcohol level greater than 200. Patient's urine drug screen is negative. Patient's acetaminophen and salicylates are 0. I have discussed the case with Dr. Blankenship at [facility] and he is agreed to accept patient in transfer for psychiatric evaluation. There is a bed available for her at this time. Definitive disposition and diagnosis as appropriate pending reevaluation and review of above. ED ROS GENERAL - Review of Systems Review Of Systems: See Below ED EXAM, BEHAVIORAL HEALTH - Physical Exam Exam: See Below COURSE, BEHAVIORAL HEALTH COMP - Course Vital Signs: Last Vital Signs Temp 97.7 F 06/17/20 21:54 Pulse 88 06/17/20 21:54 Resp 18 06/17/20 21:54 BP 126/75 06/17/20 21:54 Pulse Ox 95 06/17/20 21:54 Orders, Labs, Meds: Active Orders 24 hr Category Date Time Status EKG Documentation Completion [RC] STAT Care 06/17/20 21:55 Active CORONAVIRUS COVID-19 MIKEY [MOLEC] Stat Lab 06/17/20 23:00 Received Laboratory Tests 06/17/20 06/17/20 06/17/20 Range/Units 22:10 22:10 22:18 WBC 8.65 (4.0-11.0) K/uL RBC 4.36 (4.30-5.90) M/uL Hgb 14.0 (12.0-16.0) g/dL Hct 42.6 (36.0-46.0) % MCV 97.7 (80.0-98.0) fL MCH 32.1 H (27.0-32.0) pg MCHC 32.9 (31.0-37.0) g/dL RDW Std Deviation 45.8 (28.0-62.0) fl RDW Coeff of Jacqueline 13 (11.0-15.0) % Plt Count 326 (150-400) K/uL MPV 10.00 (7.40-12.00) fL Neut % (Auto) 50.1 (48.0-80.0) % Lymph % (Auto) 38.0 (16.0-40.0) % [place] % (Auto) 10.6 (0.0-15.0) % Eos % (Auto) 0.5 (0.0-7.0) % Baso % (Auto) 0.8 (0.0-1.5) % Neut # (Auto) 4.3 (1.4-5.7) K/uL Lymph # (Auto) 3.3 H (0.6-2.4) K/uL [place] # (Auto) 0.9 H (0.0-0.8) K/uL Eos # (Auto) 0.0 (0.0-0.7) K/uL Baso # (Auto) 0.1 (0.0-0.1) K/uL Nucleated RBC % 0.0 /100WBC Nucleated RBCs # 0 K/uL Sodium 141 (136-145) mmol/L Potassium 3.7 (3.5-5.1) mmol/L Chloride 104 (98-107) mmol/L Carbon Dioxide 26.6 (21.0-32.0) mmol/L BUN 12 (7.0-18.0) mg/dL Creatinine 0.9 (0.6-1.0) mg/dL Est Cr Clr Drug Dosing 91.31 mL/min Estimated GFR (MDRD) > 60.0 ml/min Glucose 125 H (74-106) mg/dL Calcium 8.9 (8.5-10.1) mg/dL Magnesium 1.9 (1.8-2.4) mg/dL Total Bilirubin 0.2 (0.2-1.0) mg/dL AST 57 H (15-37) IU/L ALT 81 H (14-63) IU/L Alkaline Phosphatase 67 (46-116) U/L Total Protein 7.8 (6.4-8.2) g/dL Albumin 4.2 (3.4-5.0) g/dL Globulin 3.6 (2.6-4.0) g/dL Albumin/Globulin Ratio 1.2 (0.9-1.6) TSH 3rd Generation 1.04 (0.36-3.74) uIU/mL Urine Color YELLOW Urine Appearance SLT CLOUDY Urine pH 6.0 (5.0-8.0) Ur Specific [place] 1.020 (1.001-1.035) Urine Protein 30 H (NEGATIVE) mg/dL Urine Glucose (UA) NEGATIVE (NEGATIVE) mg/dL Urine Ketones TRACE H (NEGATIVE) mg/dL Urine Occult Blood NEGATIVE (NEGATIVE) Urine Nitrite NEGATIVE (NEGATIVE) Urine Bilirubin NEGATIVE (NEGATIVE) Urine Urobilinogen 0.2 (<2.0) EU/dL Ur Leukocyte Esterase NEGATIVE (NEGATIVE) U Hyaline Cast (Auto) 1-3 (0-2/LPF) Urine RBC 0-2 (0-2/HPF) Urine WBC 3-5 (0-5/HPF) Ur Epithelial Cells FEW (NONE-FEW) Amorphous Sediment LIGHT (NEGATIVE) Urine Bacteria 1+ H (NEGATIVE) Urine Mucus LIGHT (NONE-MOD) Salicylates 2.5 (0-20) mg/dL Urine Opiates Screen (NEGATIVE) Ur Oxycodone Screen (NEGATIVE) Urine Methadone Screen (NEGATIVE) Acetaminophen <2.0 ug/mL Ur Barbiturates Screen (NEGATIVE) Ur Phencyclidine Scrn (NEGATIVE) Ur Amphetamine Screen (NEGATIVE) U Methamphetamines Scrn (NEGATIVE) U Benzodiazepines Scrn (NEGATIVE) U Cocaine Metab Screen (NEGATIVE) U Marijuana (THC) Screen (NEGATIVE) Ethyl Alcohol 273 mg/dL 06/17/20 Range/Units 22:18 WBC (4.0-11.0) K/uL RBC (4.30-5.90) M/uL Hgb (12.0-16.0) g/dL Hct (36.0-46.0) % MCV (80.0-98.0) fL MCH (27.0-32.0) pg MCHC (31.0-37.0) g/dL RDW Std Deviation (28.0-62.0) fl RDW Coeff of Jacqueline (11.0-15.0) % Plt Count (150-400) K/uL MPV (7.40-12.00) fL Neut % (Auto) (48.0-80.0) % Lymph % (Auto) (16.0-40.0) % [place] % (Auto) (0.0-15.0) % Eos % (Auto) (0.0-7.0) % Baso % (Auto) (0.0-1.5) % Neut # (Auto) (1.4-5.7) K/uL Lymph # (Auto) (0.6-2.4) K/uL [place] # (Auto) (0.0-0.8) K/uL Eos # (Auto) (0.0-0.7) K/uL Baso # (Auto) (0.0-0.1) K/uL Nucleated RBC % /100WBC Nucleated RBCs # K/uL Sodium (136-145) mmol/L Potassium (3.5-5.1) mmol/L Chloride (98-107) mmol/L Carbon Dioxide (21.0-32.0) mmol/L BUN (7.0-18.0) mg/dL Creatinine (0.6-1.0) mg/dL Est Cr Clr Drug Dosing mL/min Estimated GFR (MDRD) ml/min Glucose (74-106) mg/dL Calcium (8.5-10.1) mg/dL Magnesium (1.8-2.4) mg/dL Total Bilirubin (0.2-1.0) mg/dL AST (15-37) IU/L ALT (14-63) IU/L Alkaline Phosphatase (46-116) U/L Total Protein (6.4-8.2) g/dL Albumin (3.4-5.0) g/dL Globulin (2.6-4.0) g/dL Albumin/Globulin Ratio (0.9-1.6) TSH 3rd Generation (0.36-3.74) uIU/mL Urine Color Urine Appearance Urine pH (5.0-8.0) Ur Specific [place] (1.001-1.035) Urine Protein (NEGATIVE) mg/dL Urine Glucose (UA) (NEGATIVE) mg/dL Urine Ketones (NEGATIVE) mg/dL Urine Occult Blood (NEGATIVE) Urine Nitrite (NEGATIVE) Urine Bilirubin (NEGATIVE) Urine Urobilinogen (<2.0) EU/dL Ur Leukocyte Esterase (NEGATIVE) U Hyaline Cast (Auto) (0-2/LPF) Urine RBC (0-2/HPF) Urine WBC (0-5/HPF) Ur Epithelial Cells (NONE-FEW) Amorphous Sediment (NEGATIVE) Urine Bacteria (NEGATIVE) Urine Mucus (NONE-MOD) Salicylates (0-20) mg/dL Urine Opiates Screen NEGATIVE (NEGATIVE) Ur Oxycodone Screen NEGATIVE (NEGATIVE) Urine Methadone Screen NEGATIVE (NEGATIVE) Acetaminophen ug/mL Ur Barbiturates Screen NEGATIVE (NEGATIVE) Ur Phencyclidine Scrn NEGATIVE (NEGATIVE) Ur Amphetamine Screen NEGATIVE (NEGATIVE) U Methamphetamines Scrn NEGATIVE (NEGATIVE) U Benzodiazepines Scrn NEGATIVE (NEGATIVE) U Cocaine Metab Screen NEGATIVE (NEGATIVE) U Marijuana (THC) Screen NEGATIVE (NEGATIVE) Ethyl Alcohol mg/dL Departure - Departure Time of Disposition: 23:34 Condition: Good Sepsis Event Note (ED) - Focused Exam Vital Signs: Vital Signs Temp Pulse Resp BP Pulse Ox 06/17/20 21:54 97.7 F 88 18 126/75 95 - My Orders Last 24 Hours: My Active Orders 06/17/20 23:00 CORONAVIRUS COVID-19 MIKEY [MOLEC] Stat - Assessment/Plan Last 24 Hours: My Active Orders 06/17/20 23:00 CORONAVIRUS COVID-19 MIKEY [MOLEC] Stat
[2020-06-17 22:48] LABS: ACETAMINOPHEN <2.0 ug/mL; BLOOD UREA NITROGEN,BUN 12 mg/dL (7.0-18.0); CARBON DIOXIDE,CO2 26.6 mmol/L (21.0-32.0); CHLORIDE,CL 104 mmol/L (98-107); GLUCOSE RANDOM 125 mg/dL (74-106); POTASSIUM,K 3.7 mmol/L (3.5-5.1); SODIUM,NA 141 mmol/L (136-145)
[2020-06-17 23:49] VITALS: BP 118/94; PULSE 90
[2020-06-18] MEDS: Propranolol 20 MG Tab PO ONE
[2020-06-18] MEDS: Albuterol 8 GM Inhaler INH ONE (00:01)
[2020-06-18] MEDS: Albuterol HFA 18 Gm Inhaler INH ONE ×2 (00:02)
[2020-06-18] MEDS: ALPRAZolam 0.5 MG Tab PO ONE ×2 (00:17→00:57)
== END 2020-06-18 00:20 ==
LOC: MW.ED 20:53
DX: F33.2 Major depressive disorder, recurrent severe without psychotic features (principal); J45.909 Unspecified asthma, uncomplicated; Z91.018 Allergy to other foods; Z88.8 Allergy status to other drugs, medicaments and biological substances; Z88.0 Allergy status to penicillin; Z79.899 Other long term (current) drug therapy; Z20.822 Contact with and (suspected) exposure to COVID-19
CPT/HCPCS: 36415; 80053; 80143; 80179; 80305; 80307; 81001; 83735; 84443; 85025; 87635; 93005; 99285; A9270; 93010; 99284; J3535-GY; U0002

== ENCOUNTER 2022-05-27 14:32 | Emergency (ER) | payer SELFPAY ==
[2022-05-27 17:01] VITALS: BP 121/72; PULSE 93
== END 2022-05-27 17:00 | disposition home or self-care (01) ==
LOC: MW.ED 14:32
DX: S62.644A Nondisplaced fracture of proximal phalanx of right ring finger, initial encounter for closed fracture (principal); E66.9 Obesity, unspecified; Z68.36 Body mass index [BMI] 36.0-36.9, adult; Z91.018 Allergy to other foods; Z91.041 Radiographic dye allergy status; Z88.0 Allergy status to penicillin; Z88.8 Allergy status to other drugs, medicaments and biological substances; Z79.899 Other long term (current) drug therapy; W22.8XXA Striking against or struck by other objects, initial encounter
CPT/HCPCS: 73130-26-RT; 73130-RT; 99283

== ENCOUNTER 2022-09-18 02:29 | Emergency (ER) | payer SELFPAY ==
[2022-09-18] MEDS ORDERED: OLANZapine 5 MG Tab.DIS PO ONE (02:42)
[2022-09-18] MEDS ORDERED: OLANZapine 5 MG Tab ONE (02:46)
[2022-09-18] MEDS ORDERED: OLANZapine 5 MG Tab PO STA (02:50)
[2022-09-18 03:27] LABS: ACETAMINOPHEN <2.0 ug/mL; BLOOD UREA NITROGEN,BUN 3 mg/dL (7.0-18.0); CHLORIDE,CL 101 mmol/L (98-107); GLUCOSE RANDOM 150 mg/dL (74-106); POTASSIUM,K 3.9 mmol/L (3.5-5.1); SODIUM,NA 140 mmol/L (136-145)
[2022-09-18 03:29] LABS: ESTIMATED GFR 102 mL/min (>60)
[2022-09-18] MEDS ORDERED: LORazepam 1 MG Tab PO ONE (03:31)
[2022-09-18 12:03] VITALS: BP 94/68
[2022-09-18 12:15] VITALS: PULSE 92
== END 2022-09-18 12:55 ==
LOC: MW.ED 02:29
DX: F32.A Depression, unspecified (principal); R45.851 Suicidal ideations; E66.9 Obesity, unspecified; Z68.34 Body mass index [BMI] 34.0-34.9, adult; Z88.0 Allergy status to penicillin; Z88.5 Allergy status to narcotic agent; Z91.018 Allergy to other foods; Z88.8 Allergy status to other drugs, medicaments and biological substances; Z20.822 Contact with and (suspected) exposure to COVID-19
CPT/HCPCS: 36415; 80053; 80143; 80179; 80305; 80307; 81001; 84443; 84703; 85025; 87635; 99285; A9270; U0002

== ENCOUNTER 2022-10-28 15:27 | Emergency (ER) | payer SELFPAY ==
[2022-10-28 15:41] VITALS: PULSE 97
[2022-10-28] MEDS ORDERED: Ibuprofen 600 MG Tab PO ONE (16:34)
[2022-10-28 18:18] VITALS: BP 100/73
== END 2022-10-28 18:19 | disposition home or self-care (01) ==
LOC: MW.ED 15:27
DX: S63.502A Unspecified sprain of left wrist, initial encounter (principal); S50.12XA Contusion of left forearm, initial encounter; Z91.018 Allergy to other foods; Z91.041 Radiographic dye allergy status; Z88.0 Allergy status to penicillin; Z79.899 Other long term (current) drug therapy; W01.0XXA Fall on same level from slipping, tripping and stumbling without subsequent striking against object, initial encounter
CPT/HCPCS: 29125; 73090-26-LT; 73090-LT; 73110-26-LT; 73110-LT; 99283

== ENCOUNTER 2023-05-10 22:59 | Emergency (ER) | payer SELFPAY ==
[2023-05-10] MEDS ORDERED: Acetaminophen 325 MG Tab PO ONE (23:32)
[2023-05-10] MEDS ORDERED: Ketorolac 30 MG/ML SDV IVPUSH ONE (23:32)
[2023-05-11] MEDS ORDERED: Lidocaine 4% 1 each Patch ONE (00:54)
[2023-05-11 01:57] VITALS: BP 117/76; PULSE 101
[2023-05-11] MEDS ORDERED: Lidocaine 4% 1 each Patch TOP SCH (09:00)
== END 2023-05-11 01:56 | disposition home or self-care (01) ==
LOC: MW.ED 22:59
DX: M54.2 Cervicalgia (principal); R07.81 Pleurodynia; M53.3 Sacrococcygeal disorders, not elsewhere classified; R51.9 Headache, unspecified; Y04.8XXA Assault by other bodily force, initial encounter; Z91.018 Allergy to other foods; Z88.0 Allergy status to penicillin; Z88.8 Allergy status to other drugs, medicaments and biological substances; Z91.041 Radiographic dye allergy status
CPT/HCPCS: 70450; 71111; 72125; 96374; 99284; A9270; J1885

== ENCOUNTER 2023-07-20 22:38 | Emergency (ER) | payer SELFPAY ==
[2023-07-21 01:32] VITALS: BP 135/87; PULSE 78
== END 2023-07-21 01:32 | disposition home or self-care (01) ==
LOC: MW.ED 22:38
DX: S62.501A Fracture of unspecified phalanx of right thumb, initial encounter for closed fracture (principal); F17.210 Nicotine dependence, cigarettes, uncomplicated; Z88.0 Allergy status to penicillin; Z88.8 Allergy status to other drugs, medicaments and biological substances; Z91.041 Radiographic dye allergy status; Z91.018 Allergy to other foods; W01.0XXA Fall on same level from slipping, tripping and stumbling without subsequent striking against object, initial encounter
CPT/HCPCS: 29125; 73130-26-RT; 73130-RT; 99283

== ENCOUNTER 2024-03-16 00:57 | Emergency (ER) | payer SELFPAY ==
[2024-03-16] MEDS ORDERED: Sodium Chloride 0.9% 10 ML Syringe FLUSH PRN (01:15)
[2024-03-16] MEDS ORDERED: Sodium Chloride 0.9% 2.5 ML Syringe FLUSH PRN (01:15)
[2024-03-16] MEDS ORDERED: Magnesium Sulfate (4.06 MEQ/ML) 5 GM/10 ML SDV IV ONE (01:17)
[2024-03-16 01:49] LABS: HEMATOCRIT 35.9 % (37.0-47.0); HEMOGLOBIN 12.3 g/dL (12.0-16.0); MEAN CORPUSCULAR HEMOGLOBIN 33.8 pg (28.0-32.0); MEAN CORPUSCULAR HGB CONC 34.3 g/dL (32.0-36.0); MEAN CORPUSCULAR VOLUME 98.6 fL (83.0-99.0); MEAN PLATELET VOLUME 10.3 fL (9.4-12.3); PLATELET COUNT,PLT 159 K/uL (150-400); RED BLOOD CELL COUNT 3.64 M/uL (4.10-5.30)
[2024-03-16] MEDS: Metoclopramide 10 MG/2 ML SDV IVPUSH ONE (01:50)
[2024-03-16] MEDS: Acetaminophen 325 MG Tab PO ONE (01:50)
[2024-03-16] MEDS: Magnesium Sulfate/Water Premix 2 GM in Premix Bag 1 BAG IV ONE (01:50)
[2024-03-16 02:02] LABS: INR 1.61 (0.86-1.11)
[2024-03-16 02:13] LABS: A/G RATIO 0.6 (0.9-1.6); ALBUMIN 3.5 g/dL (3.4-5.0); CALCIUM 9.2 mg/dL (8.5-10.1); CARBON DIOXIDE,CO2 27.1 mmol/L (21.0-32.0); CREATININE 0.7 mg/dL (0.6-1.0); EST CRCL DRUG DOSING (CG) 114.28 mL/min; POTASSIUM,K 3.4 mmol/L (3.5-5.1); PROTEIN TOTAL,TP 9.3 g/dL (6.4-8.2)
[2024-03-16 02:29] LABS: LYMPHOCYTES PERCENT MAN 31 % (24-44); MONOCYTES PERCENT MAN 9 % (0-8); SEG NEUTROPHILS PERCENT MAN 60 % (41-71)
[2024-03-16 02:31] VITALS: BP 119/67; PULSE 95
== END 2024-03-16 02:44 | disposition home or self-care (01) ==
LOC: MW.ED 00:57
DX: R51.9 Headache, unspecified (principal); F10.120 Alcohol abuse with intoxication, uncomplicated; D72.829 Elevated white blood cell count, unspecified; Z79.899 Other long term (current) drug therapy; Z88.0 Allergy status to penicillin; Z88.8 Allergy status to other drugs, medicaments and biological substances; Z91.041 Radiographic dye allergy status; Z91.018 Allergy to other foods; Z75.8 Other problems related to medical facilities and other health care
CPT/HCPCS: 36415; 70450; 80053; 80307; 85025; 85610; 96365; 96375; 99284; J2765; J3475

== ENCOUNTER 2025-03-05 10:05 | Emergency (ER) | payer SELFPAY ==
[2025-03-05] MEDS ORDERED: Sodium Chloride 0.9% 10 ML Syringe FLUSH PRN ×2 (10:45→11:36)
[2025-03-05] MEDS ORDERED: Sodium Chloride 0.9% 2.5 ML Syringe FLUSH PRN ×2 (10:45→11:36)
[2025-03-05 11:07] LABS: INR 2.97 (0.86-1.11); PTT,PARTIAL THROMBOPLSTIN TIME 37.9 SEC (23.9-30.7)
[2025-03-05 11:09] LABS: A/G RATIO 0.6 (0.9-1.6); ALANINE AMINOTRANSFERASE,ALT 35 IU/L (14-63); ASPARTATE AMNIOTRANSFERASE,AST 114 IU/L (15-37); BILIRUBIN TOTAL 19.1 mg/dL (0.2-1.0); BLOOD UREA NITROGEN,BUN 11 mg/dL (7.0-18.0); CARBON DIOXIDE,CO2 17.5 mmol/L (21.0-32.0); CHLORIDE,CL 96 mmol/L (98-107); CREATININE 0.9 mg/dL (0.6-1.0); EST CRCL DRUG DOSING (CG) 88.07 mL/min; ETHANOL BLOOD MEDICAL <3 mg/dL; GLUCOSE RANDOM 113 mg/dL (74-106); POTASSIUM,K 3.5 mmol/L (3.5-5.1); PROTEIN TOTAL,TP 7.2 g/dL (6.4-8.2); SODIUM,NA 135 mmol/L (136-145)
[2025-03-05 11:11] LABS: ESTIMATED GFR 88 mL/min (>60)
[2025-03-05] MEDS: diphenhydrAMINE 50 MG/ML SDV IVPUSH ONE (11:26)
[2025-03-05] MEDS: methylPREDNISolone Sodium Succinate 125 MG/2 ML SDV IVPUSH ONE (11:26)
[2025-03-05] MEDS: Magnesium Sulfate 4 GM/100 mL 4 GM in Premix Bag 1 BAG IV ONE (11:40)
[2025-03-05 11:45] LABS: MEAN PLATELET VOLUME 10.3 fL (9.4-12.3); NRBC ABSOLUTE 0.06 K/uL (0.00-0.02); NRBC PERCENT 0.4 /100WBC (0.0-0.2); PLATELET COUNT,PLT 89 K/uL (150-400); RED BLOOD CELL COUNT 0.73 M/uL (4.10-5.30); WHITE BLOOD CELL COUNT,WBC 13.72 K/uL (3.9-11.3)
[2025-03-05 12:28] LABS: CREATINE KINASE,CK 210 U/L (26-308); ETHANOL BLOOD MEDICAL <3 mg/dL; PRO B-TYPE NATRIUR PEPT,BNPPRO 1632 pg/mL (0-125); TSH ULTRASENSITIVE 3.54 uIU/mL (0.36-3.74)
[2025-03-05 12:32] LABS: BASOPHILS ABSOLUTE MAN 0.14 K/uL (0.00-0.20); BASOPHILS PERCENT MAN 1 % (0-1); LYMPHOCYTES ABSOLUTE MAN 1.10 K/uL (1.00-4.80); LYMPHOCYTES PERCENT MAN 8 % (24-44); MONOCYTES ABSOLUTE MAN 1.78 K/uL (0.00-0.80); MONOCYTES PERCENT MAN 13 % (0-8); SEG NEUTROPHILS ABSOLUTE MAN 10.70 K/uL (1.80-7.70); SEG NEUTROPHILS PERCENT MAN 78 % (41-71)
[2025-03-05] MEDS: Iopamidol 755 MG/ML 500 ML Multipack Bottle IVPUSH STA (13:18)
[2025-03-05 14:00] LABS: APPEARANCE,URINE SLT CLOUDY; GLUCOSE,URINE 100 mg/dL (NEGATIVE); OCCULT BLOOD,URINE TRACE-INTACT (NEGATIVE)
[2025-03-05 14:09] LABS: AMPHETAMINES SCREEN, URINE NEGATIVE (CUTOFF=500); BUPRENORPHINE SCREEN,URINE NEGATIVE (CUTOFF=10); METHADONE SCREEN, URINE NEGATIVE (CUTOFF=200); METHAMPHETAMINES SCREEN, URINE NEGATIVE (CUTOFF=500); OXYCODONE SCREEN,URINE NEGATIVE (CUT0FF=100); PCP SCREEN,URINE NEGATIVE (CUTOFF=25); THC SCREEN,URINE 20 NG/ML NEGATIVE (CUTOFF=50)
[2025-03-05 15:02] LABS: EPITHELIAL CELLS,URINE MODERATE (NONE-FEW)
[2025-03-05] MEDS: Ondansetron 4 MG/2 ML SDV IVPUSH ONE (15:47)
[2025-03-05] MEDS: cefTRIAXone 1 GM in Water For Injection, Sterile 10 ML IVPUSH ONE (15:51)
[2025-03-05 16:08] VITALS: BP 122/62; PULSE 113
== END 2025-03-05 16:00 ==
LOC: MW.ED 10:05
DX: S30.1XXA Contusion of abdominal wall, initial encounter (principal); J90 Pleural effusion, not elsewhere classified; I10 Essential (primary) hypertension; D64.9 Anemia, unspecified; E83.42 Hypomagnesemia; R60.0 Localized edema; R79.89 Other specified abnormal findings of blood chemistry; R79.0 Abnormal level of blood mineral; Z91.018 Allergy to other foods; Z91.041 Radiographic dye allergy status; Z88.0 Allergy status to penicillin; Z88.8 Allergy status to other drugs, medicaments and biological substances; W10.8XXA Fall (on) (from) other stairs and steps, initial encounter
CPT/HCPCS: 36415; 36430; 70450; 71275; 72125; 75635; 80053; 80179; 80305; 80307; 81001; 82140; 82550; 83605; 83690; 83735; 83880; 84443; 84484; 84703; 85014; 85018; 85025; 85610; 85730; 86850; 86900; 86901; 86920; 87040; 93005; 93970; 96361; 96365; 96366; 96375; 99285; J0696; J1200; J2405; J2919; J3475; J7030; P9016; Q9967; 93010